=== PATIENT | male | born 1955 | race Caucasian/White ===

== ENCOUNTER 2017-02-23 14:06 | Emergency (ER) | payer OTHER, BC ==
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
[2017-02-23 16:55] VITALS: BP 162/78
== END 2017-02-23 16:53 | disposition home or self-care (01) ==
LOC: ER 14:06
DX: S16.1XXA Strain of muscle, fascia and tendon at neck level, initial encounter (principal); V49.40XA Driver injured in collision with unspecified motor vehicles in traffic accident, initial encounter; I25.10 Atherosclerotic heart disease of native coronary artery without angina pectoris; I10 Essential (primary) hypertension; E11.9 Type 2 diabetes mellitus without complications; Z98.61 Coronary angioplasty status
CPT/HCPCS: 72050; 99284